=== PATIENT | male | born 1940 | race Caucasian/White ===

== ENCOUNTER → 2016-05-09 | Outpatient (REF) | payer MEDICARE | LOC: M LAB REF 16:02 | PROVIDERS: ATTEND Family Medicine | DX: R06.02 Shortness of breath (principal) ==

== ENCOUNTER → 2016-05-09 | Outpatient (CLI) | payer MEDICARE ==
[~2016-05-09] MED LIST: ISOVUE-370 76% 100ML VIAL (Q9967) As Ordered ONE
--- NOTE | 2016-05-09 17:27 | REP ---
Chest CT, pulmonary CT angiography: There are no emboli in the pulmonary trunk or in the central right or left pulmonary arteries. There are no emboli in the pulmonary artery lobe or segment branches. The lung turner are clear. There are no masses, infiltrates or effusions. There are numerous small bulla throughout the lung turner bilaterally compatible with bullous emphysema. There is no mediastinal or hilar adenopathy. There is no axillary adenopathy. The thoracic aorta is unremarkable. The cardiac size is normal. There is no pericardial effusion. In the upper abdomen there is a 2.8 cm left adrenal nodule, unchanged from the prior study. The right adrenals are all. There are bilateral renal upper pole cysts, each approximately centimeter in diameter. The visualized upper abdominal contents are otherwise unremarkable. Impression: There are no pulmonary emboli. There are no acute infiltrates or effusions. No masses or adenopathy. There are numerous small bulla throughout the lung turner bilaterally compatible with bullous emphysema. There is a stable left adrenal nodule, unchanged from 01/05/2010. Signed by Eric Baltazar MD 05/09/2016 05:18 P
== END ==
LOC: M RAD 15:37
PROVIDERS: ATTEND Family Medicine
DX: R06.02 Shortness of breath (principal); N28.1 Cyst of kidney, acquired
CPT/HCPCS: 71275; 85379; Q9967

== ENCOUNTER → 2021-08-26 | Outpatient (CLI) | payer MEDICARE | LOC: M CARPUL 08:56 | PROVIDERS: ATTEND Internal Medicine Pulmonary Disease | DX: J44.9 Chronic obstructive pulmonary disease, unspecified (principal) ==

== ENCOUNTER 2022-12-07 07:05 | Day surgery (SDC) | payer MEDICARE ==
[~2022-12-07] VITALS: Ht 180.3 cm; Wt 110.8 kg
[~2022-12-07 07:05] MED LIST changes: +ALBUTEROL SULFATE 2.5MG/0.5ML INH NEB SOLN INH ONE; +FLUT1BLS8 IH; -ISOVUE-370 76% 100ML VIAL (Q9967) As Ordered ONE; +LIDOCAINE PRES-FREE 2% 10ML AMP INH ONE; +NORV5TAB PO; +VENTAER INH
[2022-12-07] MEDS ORDERED: LR 1,000 ML IV SCH ×2 (07:40→09:50)
[2022-12-07] MEDS ORDERED: LIDOCAINE 2% 100MG/5ML SDV (FOR ANES.) As Ordered ONE (07:53)
[2022-12-07] MEDS ORDERED: ONDANSETRON 4MG 2ML VIAL As Ordered ONE (07:53)
[2022-12-07] MEDS ORDERED: propofoL 200 MG/20 ML VIAL As Ordered ONE (07:53)
[2022-12-07] MEDS ORDERED: SUGAMMADEX SODIUM 500 MG/5 ML VIAL (BRIDION) As Ordered ONE (07:53)
[2022-12-07] MEDS ORDERED: ROCURONIUM BROMIDE 50MG/5ML VIAL As Ordered ONE (07:53)
[2022-12-07] MEDS ORDERED: fentaNYL 100 MCG/2 ML INJECTION As Ordered ONE (07:57)
[2022-12-07] MEDS ORDERED: EPINEPHrine 1MG/10ML SYRINGE 1.5IN As Ordered ONE (08:57)
[2022-12-07] MEDS ORDERED: THROMBIN 5,000 UNITS VIAL As Ordered ONE (08:57)
[2022-12-07] MEDS ORDERED: CETACAINE SPRAY 5GM As Ordered ONE (08:57)
[2022-12-07] MEDS ORDERED: PHENYLephrine 500MCG 5ML (100MCG/ML) SYRINGE As Ordered ONE (09:35)
[2022-12-07] MEDS ORDERED: HYDROMORPHONE HCL 0.5 MG/ 0.5 ML SYRINGE IV PRN (09:50)
[2022-12-07] MEDS ORDERED: oxyCODONE 5MG TAB PO PRN (09:50)
[2022-12-07] MEDS ORDERED: fentaNYL 100 MCG/2 ML INJECTION IV PRN (09:50)
[2022-12-07] MEDS ORDERED: ONDANSETRON 4MG 2ML VIAL IV PRN (09:50)
[2022-12-07] MEDS ORDERED: ACETAMINOPHEN 1000MG 100ML IV BAG As Ordered ONE (11:07)
[2022-12-07 11:35] VITALS: BP 135/85; TEMP 98.2; O2SAT 93
== END 2022-12-07 11:37 | disposition home or self-care (01) ==
LOC: M SDC 07:05
PROVIDERS: ATTEND Internal Medicine Pulmonary Disease
DX: R91.8 Other nonspecific abnormal finding of lung field (principal); I10 Essential (primary) hypertension; J44.9 Chronic obstructive pulmonary disease, unspecified; Z85.118 Personal history of other malignant neoplasm of bronchus and lung; Z92.3 Personal history of irradiation; Z79.51 Long term (current) use of inhaled steroids; Z87.891 Personal history of nicotine dependence
CPT/HCPCS: 31622; 31652; 88104; J0131; J0171; J1100; J2371; J2405; J3010

== ENCOUNTER → 2023-08-28 | Outpatient (CLI) | payer MEDICARE ==
[~2023-08-28] MED LIST changes: -ALBUTEROL SULFATE 2.5MG/0.5ML INH NEB SOLN INH ONE; -LIDOCAINE PRES-FREE 2% 10ML AMP INH ONE
[2023-08-28 06:32] LABS: BASO # 0.1 10^3/uL (0.0-0.2); BASO % 0.8 % (0.0-1.0); EOS # 0.1 10^3/uL (0.0-0.5); HEMATOCRIT 48.8 % (42.0-52.0); HEMOGLOBIN 16.3 g/dl (13.5-17.5); LYMPH # 0.8 10^3/uL (1.5-5.0); LYMPH % 12.8 % (24.0-44.0); MEAN CORPUSCULAR HEMOGLOBIN 31.7 pg (27.0-33.0); MEAN CORPUSCULAR HGB CONC 33.4 g/dl (32.0-36.5); MEAN CORPUSCULAR VOLUME 94.8 fl (80.0-96.0); MONO # 0.8 10^3/uL (0.0-0.8); MONO % 13.3 % (2.0-8.0); NEUTROPHILS # 4.2 10^3/uL (1.5-8.5); NEUTROPHILS % 70.8 % (36.0-66.0); PLATELET COUNT, AUTOMATED 162 10^3/uL (150-450); RED BLOOD COUNT 5.15 10^6/uL (4.30-6.10); WHITE BLOOD COUNT 5.9 10^3/uL (4.0-10.0)
[2023-08-28 07:02] LABS: ALBUMIN 3.8 G/DL (3.2-5.2); BILIRUBIN,TOTAL 1.3 MG/DL (0.3-1.2); CALCIUM LEVEL 9.7 MG/DL (8.3-10.6); CREATININE FOR GFR 1.45 MG/DL (0.70-1.30); GLOMERULAR FILTRATION RATE 49.7 (>35); POTASSIUM SERUM 4.6 MMOL/L (3.5-5.1); THYROID STIMULATING HORMONE 0.628 uIU/ML (0.55-4.78); TOTAL PROTEIN 6.4 G/DL (5.7-8.2)
== END ==
LOC: M LAB 08-22 08:56
PROVIDERS: ATTEND Nurse Practitioner Family
DX: C34.81 Malignant neoplasm of overlapping sites of right bronchus and lung (principal); R91.1 Solitary pulmonary nodule; R10.32 Left lower quadrant pain; R19.5 Other fecal abnormalities; Z79.899 Other long term (current) drug therapy

== ENCOUNTER → 2023-09-18 | Outpatient (CLI) | payer MEDICARE ==
[2023-09-18 06:39] LABS: BASO # 0.1 10^3/uL (0.0-0.2); BASO % 0.6 % (0.0-1.0); EOS # 0.1 10^3/uL (0.0-0.5); EOS % 0.6 % (0.0-3.0); HEMATOCRIT 47.7 % (42.0-52.0); HEMOGLOBIN 15.9 g/dl (13.5-17.5); LYMPH # 0.9 10^3/uL (1.5-5.0); MEAN CORPUSCULAR HEMOGLOBIN 31.5 pg (27.0-33.0); MEAN CORPUSCULAR HGB CONC 33.3 g/dl (32.0-36.5); MEAN CORPUSCULAR VOLUME 94.5 fl (80.0-96.0); MONO # 0.9 10^3/uL (0.0-0.8); NEUTROPHILS % 76.2 % (36.0-66.0); PLATELET COUNT, AUTOMATED 179 10^3/uL (150-450); RED BLOOD COUNT 5.05 10^6/uL (4.30-6.10); WHITE BLOOD COUNT 7.9 10^3/uL (4.0-10.0)
[2023-09-18 07:02] LABS: ALBUMIN 3.7 G/DL (3.2-5.2); ALKALINE PHOSPHATASE 68 U/L (46-116); ALT/SGPT 15 U/L (7.0-40); AST/SGOT 12 U/L (<34); BILIRUBIN,TOTAL 1.2 MG/DL (0.3-1.2); BLOOD UREA NITROGEN 27 MG/DL (9-23); CALCIUM LEVEL 9.6 MG/DL (8.3-10.6); CARBON DIOXIDE LEVEL 30 MMOL/L (20-31); CHLORIDE LEVEL 108 MMOL/L (98-107); CREATININE FOR GFR 1.17 MG/DL (0.70-1.30); GLOMERULAR FILTRATION RATE > 60.0 (>35); GLUCOSE, FASTING 93 MG/DL (74-106); POTASSIUM SERUM 4.9 MMOL/L (3.5-5.1); SODIUM LEVEL 141 MMOL/L (136-145); TOTAL PROTEIN 6.4 G/DL (5.7-8.2)
[2023-09-18 07:04] LABS: THYROID STIMULATING HORMONE 0.406 uIU/ML (0.55-4.78)
== END ==
LOC: M LAB 06:03
PROVIDERS: ATTEND Nurse Practitioner Family
DX: R91.1 Solitary pulmonary nodule (principal); C34.81 Malignant neoplasm of overlapping sites of right bronchus and lung; R10.32 Left lower quadrant pain; R19.5 Other fecal abnormalities; Z79.899 Other long term (current) drug therapy

== ENCOUNTER → 2023-10-10 | Outpatient (CLI) | payer MEDICARE ==
[2023-10-10 06:36] LABS: BASO % 0.5 % (0.0-1.0); EOS # 0.2 10^3/uL (0.0-0.5); EOS % 2.9 % (0.0-3.0); HEMATOCRIT 47.1 % (42.0-52.0); HEMOGLOBIN 15.5 g/dl (13.5-17.5); LYMPH # 0.8 10^3/uL (1.5-5.0); MEAN CORPUSCULAR HEMOGLOBIN 31.8 pg (27.0-33.0); MEAN CORPUSCULAR HGB CONC 32.9 g/dl (32.0-36.5); MEAN CORPUSCULAR VOLUME 96.5 fl (80.0-96.0); MONO # 0.8 10^3/uL (0.0-0.8); MONO % 13.9 % (2.0-8.0); NEUTROPHILS % 69.4 % (36.0-66.0); PLATELET COUNT, AUTOMATED 164 10^3/uL (150-450); RED BLOOD COUNT 4.88 10^6/uL (4.30-6.10); WHITE BLOOD COUNT 5.8 10^3/uL (4.0-10.0)
[2023-10-10 07:00] LABS: ALBUMIN 3.5 G/DL (3.2-5.2); ALKALINE PHOSPHATASE 67 U/L (46-116); ALT/SGPT 18 U/L (7.0-40); AST/SGOT 17 U/L (<34); BILIRUBIN,TOTAL 0.9 MG/DL (0.3-1.2); BLOOD UREA NITROGEN 26 MG/DL (9-23); CARBON DIOXIDE LEVEL 28 MMOL/L (20-31); CHLORIDE LEVEL 108 MMOL/L (98-107); CREATININE FOR GFR 1.18 MG/DL (0.70-1.30); GLOMERULAR FILTRATION RATE > 60.0 (>35); GLUCOSE, FASTING 94 MG/DL (74-106); POTASSIUM SERUM 4.5 MMOL/L (3.5-5.1); SODIUM LEVEL 139 MMOL/L (136-145); TOTAL PROTEIN 6.2 G/DL (5.7-8.2)
[2023-10-10 07:02] LABS: THYROID STIMULATING HORMONE 0.516 uIU/ML (0.55-4.78)
== END ==
LOC: M LAB 06:02
PROVIDERS: ATTEND Nurse Practitioner Family
DX: R91.1 Solitary pulmonary nodule (principal); C34.81 Malignant neoplasm of overlapping sites of right bronchus and lung; R10.32 Left lower quadrant pain; R19.5 Other fecal abnormalities; Z79.899 Other long term (current) drug therapy

== ENCOUNTER → 2023-10-16 | Outpatient (CLI) | payer MEDICARE | LOC: M RAD 11:44 | PROVIDERS: ATTEND Internal Medicine Hematology & Oncology | DX: C34.81 Malignant neoplasm of overlapping sites of right bronchus and lung (principal); R91.1 Solitary pulmonary nodule; R13.10 Dysphagia, unspecified; R10.32 Left lower quadrant pain; R19.5 Other fecal abnormalities ==

== ENCOUNTER → 2023-10-27 | Outpatient (CLI) | payer MEDICARE ==
[~2023-10-27] MED LIST changes: +ISOVUE-370 76% 100ML VIAL ONE
== END ==
LOC: M PLAIMG 11:34
PROVIDERS: ATTEND Internal Medicine Hematology & Oncology
DX: C34.81 Malignant neoplasm of overlapping sites of right bronchus and lung (principal); R13.10 Dysphagia, unspecified; R22.42 Localized swelling, mass and lump, left lower limb; R10.32 Left lower quadrant pain; R19.5 Other fecal abnormalities; E04.2 Nontoxic multinodular goiter; J43.2 Centrilobular emphysema; M47.812 Spondylosis without myelopathy or radiculopathy, cervical region
CPT/HCPCS: 70491; Q9967

== ENCOUNTER → 2023-10-30 | Outpatient (CLI) | payer MEDICARE ==
[~2023-10-30] MED LIST changes: -ISOVUE-370 76% 100ML VIAL ONE
[2023-10-30 08:04] LABS: BASO % 0.4 % (0.0-1.0); EOS # 0.1 10^3/uL (0.0-0.5); EOS % 1.5 % (0.0-3.0); HEMOGLOBIN 15.6 g/dl (13.5-17.5); LYMPH # 0.7 10^3/uL (1.5-5.0); LYMPH % 10.5 % (24.0-44.0); MEAN CORPUSCULAR HEMOGLOBIN 31.6 pg (27.0-33.0); MEAN CORPUSCULAR HGB CONC 33.2 g/dl (32.0-36.5); MEAN CORPUSCULAR VOLUME 95.1 fl (80.0-96.0); MONO % 14.9 % (2.0-8.0); NEUTROPHILS % 72.4 % (36.0-66.0); PLATELET COUNT, AUTOMATED 159 10^3/uL (150-450); RED BLOOD COUNT 4.94 10^6/uL (4.30-6.10); WHITE BLOOD COUNT 6.9 10^3/uL (4.0-10.0)
[2023-10-30 08:37] LABS: ALBUMIN 3.6 G/DL (3.2-5.2); ALKALINE PHOSPHATASE 73 U/L (46-116); ALT/SGPT 15 U/L (7.0-40); AST/SGOT 14 U/L (<34); BILIRUBIN,TOTAL 1.1 MG/DL (0.3-1.2); BLOOD UREA NITROGEN 24 MG/DL (9-23); CALCIUM LEVEL 9.3 MG/DL (8.3-10.6); CARBON DIOXIDE LEVEL 29 MMOL/L (20-31); CHLORIDE LEVEL 110 MMOL/L (98-107); CREATININE FOR GFR 1.18 MG/DL (0.70-1.30); GLOMERULAR FILTRATION RATE > 60.0 (>35); GLUCOSE, FASTING 106 MG/DL (74-106); MAGNESIUM LEVEL 1.9 MG/DL (1.8-2.4); POTASSIUM SERUM 4.6 MMOL/L (3.5-5.1); SODIUM LEVEL 142 MMOL/L (136-145); TOTAL PROTEIN 6.3 G/DL (5.7-8.2)
== END ==
LOC: M LAB 06:17
PROVIDERS: ATTEND Nurse Practitioner Family
DX: R91.1 Solitary pulmonary nodule (principal); C34.81 Malignant neoplasm of overlapping sites of right bronchus and lung; R10.32 Left lower quadrant pain; R19.5 Other fecal abnormalities; Z79.899 Other long term (current) drug therapy

== ENCOUNTER → 2023-11-14 | Outpatient (CLI) | payer MEDICARE | LOC: M PLAIMG 08:54 | PROVIDERS: ATTEND Student in an Organized Health Care Education/Training Program | DX: C34.81 Malignant neoplasm of overlapping sites of right bronchus and lung (principal); R91.1 Solitary pulmonary nodule; R10.32 Left lower quadrant pain; R19.5 Other fecal abnormalities ==

== ENCOUNTER → 2023-11-14 | Outpatient (CLI) | payer MEDICARE | LOC: M PLAIMG 08:58 | PROVIDERS: ATTEND Internal Medicine Hematology & Oncology | DX: C34.81 Malignant neoplasm of overlapping sites of right bronchus and lung (principal); R91.1 Solitary pulmonary nodule; R11.0 Nausea; R13.10 Dysphagia, unspecified; R22.42 Localized swelling, mass and lump, left lower limb; R10.32 Left lower quadrant pain; R19.5 Other fecal abnormalities ==

== ENCOUNTER → 2023-11-21 | Outpatient (CLI) | payer MEDICARE ==
[2023-11-21 06:53] LABS: BASO # 0.1 10^3/uL (0.0-0.2); BASO % 0.8 % (0.0-1.0); EOS # 0.1 10^3/uL (0.0-0.5); HEMATOCRIT 47.1 % (42.0-52.0); HEMOGLOBIN 15.6 g/dl (13.5-17.5); LYMPH # 0.9 10^3/uL (1.5-5.0); LYMPH % 12.2 % (24.0-44.0); MEAN CORPUSCULAR HEMOGLOBIN 31.2 pg (27.0-33.0); MEAN CORPUSCULAR HGB CONC 33.1 g/dl (32.0-36.5); MEAN CORPUSCULAR VOLUME 94.2 fl (80.0-96.0); MONO # 0.9 10^3/uL (0.0-0.8); MONO % 12.7 % (2.0-8.0); NEUTROPHILS # 5.1 10^3/uL (1.5-8.5); NEUTROPHILS % 71.9 % (36.0-66.0); PLATELET COUNT, AUTOMATED 186 10^3/uL (150-450); WHITE BLOOD COUNT 7.1 10^3/uL (4.0-10.0)
[2023-11-21 07:27] LABS: ALBUMIN 3.6 G/DL (3.2-5.2); ALKALINE PHOSPHATASE 78 U/L (46-116); ALT/SGPT 14 U/L (7.0-40); AST/SGOT 12 U/L (<34); BILIRUBIN,TOTAL 1.1 MG/DL (0.3-1.2); BLOOD UREA NITROGEN 24 MG/DL (9-23); CALCIUM LEVEL 9.8 MG/DL (8.3-10.6); CARBON DIOXIDE LEVEL 29 MMOL/L (20-31); CHLORIDE LEVEL 107 MMOL/L (98-107); GLOMERULAR FILTRATION RATE > 60.0 (>35); GLUCOSE, FASTING 89 MG/DL (74-106); POTASSIUM SERUM 4.6 MMOL/L (3.5-5.1); SODIUM LEVEL 142 MMOL/L (136-145); TOTAL PROTEIN 6.5 G/DL (5.7-8.2)
[2023-11-21 07:28] LABS: FREE T4 1.29 NG/DL (0.89-1.76); THYROID STIMULATING HORMONE 1.539 uIU/ML (0.55-4.78)
== END ==
LOC: M LAB 06:03
PROVIDERS: ATTEND Internal Medicine Hematology & Oncology
DX: Z51.81 Encounter for therapeutic drug level monitoring (principal); Z79.899 Other long term (current) drug therapy

== ENCOUNTER → 2023-12-11 | Outpatient (CLI) | payer MEDICARE ==
[2023-12-11 06:46] LABS: BASO # 0.1 10^3/uL (0.0-0.2); BASO % 0.7 % (0.0-1.0); EOS # 0.3 10^3/uL (0.0-0.5); EOS % 4.1 % (0.0-3.0); HEMATOCRIT 46.7 % (42.0-52.0); HEMOGLOBIN 15.8 g/dl (13.5-17.5); LYMPH # 0.8 10^3/uL (1.5-5.0); MEAN CORPUSCULAR HEMOGLOBIN 31.7 pg (27.0-33.0); MEAN CORPUSCULAR HGB CONC 33.8 g/dl (32.0-36.5); MEAN CORPUSCULAR VOLUME 93.8 fl (80.0-96.0); MONO % 13.8 % (2.0-8.0); NEUTROPHILS # 5.2 10^3/uL (1.5-8.5); NEUTROPHILS % 70.1 % (36.0-66.0); PLATELET COUNT, AUTOMATED 204 10^3/uL (150-450); RED BLOOD COUNT 4.98 10^6/uL (4.30-6.10); WHITE BLOOD COUNT 7.5 10^3/uL (4.0-10.0)
[2023-12-11 07:19] LABS: ALBUMIN 3.5 G/DL (3.2-5.2); ALKALINE PHOSPHATASE 80 U/L (40-129); ALT/SGPT 15 U/L (7.0-40); AST/SGOT 12 U/L (<34); BILIRUBIN,TOTAL 1.3 MG/DL (0.3-1.2); BLOOD UREA NITROGEN 20 MG/DL (9-23); CALCIUM LEVEL 9.8 MG/DL (8.3-10.6); CARBON DIOXIDE LEVEL 25 MMOL/L (20-31); CHLORIDE LEVEL 107 MMOL/L (98-107); CREATININE FOR GFR 1.08 MG/DL (0.70-1.30); GLOMERULAR FILTRATION RATE > 60.0 (>35); GLUCOSE, FASTING 114 MG/DL (74-106); MAGNESIUM LEVEL 2.1 MG/DL (1.8-2.4); POTASSIUM SERUM 4.4 MMOL/L (3.5-5.1); SODIUM LEVEL 141 MMOL/L (136-145); TOTAL PROTEIN 6.5 G/DL (5.7-8.2)
[2023-12-11 07:21] LABS: FREE T4 1.37 NG/DL (0.89-1.76); THYROID STIMULATING HORMONE 0.627 uIU/ML (0.55-4.78)
== END ==
LOC: M LAB 06:06
PROVIDERS: ATTEND Internal Medicine Hematology & Oncology
DX: R22.42 Localized swelling, mass and lump, left lower limb (principal); Z79.899 Other long term (current) drug therapy; C34.81 Malignant neoplasm of overlapping sites of right bronchus and lung; R10.32 Left lower quadrant pain; R19.5 Other fecal abnormalities; R13.10 Dysphagia, unspecified

== ENCOUNTER → 2024-01-01 | Outpatient (CLI) | payer MEDICARE ==
[2024-01-01 08:05] LABS: BASO # 0.1 10^3/uL (0.0-0.2); BASO % 0.6 % (0.0-1.0); EOS # 0.2 10^3/uL (0.0-0.5); HEMATOCRIT 47.2 % (42.0-52.0); HEMOGLOBIN 15.7 g/dl (13.5-17.5); LYMPH % 12.4 % (24.0-44.0); MEAN CORPUSCULAR HEMOGLOBIN 31.4 pg (27.0-33.0); MEAN CORPUSCULAR HGB CONC 33.3 g/dl (32.0-36.5); MEAN CORPUSCULAR VOLUME 94.4 fl (80.0-96.0); MONO # 0.9 10^3/uL (0.0-0.8); MONO % 11.2 % (2.0-8.0); NEUTROPHILS # 5.6 10^3/uL (1.5-8.5); NEUTROPHILS % 72.5 % (36.0-66.0); PLATELET COUNT, AUTOMATED 188 10^3/uL (150-450); WHITE BLOOD COUNT 7.8 10^3/uL (4.0-10.0)
[2024-01-01 08:40] LABS: ALBUMIN 3.6 G/DL (3.2-5.2); ALKALINE PHOSPHATASE 87 U/L (40-129); ALT/SGPT 13 U/L (7.0-40); AST/SGOT 10 U/L (<34); BILIRUBIN,TOTAL 0.7 MG/DL (0.3-1.2); BLOOD UREA NITROGEN 18 MG/DL (9-23); CALCIUM LEVEL 9.7 MG/DL (8.3-10.6); CARBON DIOXIDE LEVEL 27 MMOL/L (20-31); CHLORIDE LEVEL 108 MMOL/L (98-107); CREATININE FOR GFR 1.11 MG/DL (0.70-1.30); GLOMERULAR FILTRATION RATE > 60.0 (>35); GLUCOSE, FASTING 145 MG/DL (74-106); POTASSIUM SERUM 5.1 MMOL/L (3.5-5.1); SODIUM LEVEL 141 MMOL/L (136-145); THYROID STIMULATING HORMONE 0.418 uIU/ML (0.55-4.78); TOTAL PROTEIN 6.9 G/DL (5.7-8.2)
[2024-01-01 08:41] LABS: FREE T4 1.21 NG/DL (0.89-1.76)
== END ==
LOC: M LAB 06:07
PROVIDERS: ATTEND Internal Medicine Hematology & Oncology
DX: R91.1 Solitary pulmonary nodule (principal); Z79.899 Other long term (current) drug therapy; R19.5 Other fecal abnormalities; R13.10 Dysphagia, unspecified; R22.42 Localized swelling, mass and lump, left lower limb; C34.81 Malignant neoplasm of overlapping sites of right bronchus and lung

== ENCOUNTER 2024-01-22 12:20 | Day surgery (SDC) | payer MEDICARE ==
[~2024-01-22] VITALS: Ht 175.3 cm; Wt 106.6 kg
[~2024-01-22 12:20] MED LIST changes: +NS 250 ML IV ONE
[2024-01-22] MEDS ORDERED: propofoL 200 MG/20 ML VIAL As Ordered ONE (14:02)
[2024-01-22] MEDS ORDERED: LIDOCAINE 2% 100MG/5ML SDV (FOR ANES.) As Ordered ONE (14:02)
[2024-01-22 14:17] VITALS: TEMP 98.1
[2024-01-22 14:40] VITALS: BP 117/81; O2SAT 96
== END 2024-01-22 14:48 | disposition home or self-care (01) ==
LOC: M OPP 12:20
PROVIDERS: ATTEND Internal Medicine Gastroenterology
DX: K21.00 Gastro-esophageal reflux disease with esophagitis, without bleeding (principal); K44.9 Diaphragmatic hernia without obstruction or gangrene; I10 Essential (primary) hypertension; E78.5 Hyperlipidemia, unspecified; R60.0 Localized edema; M19.90 Unspecified osteoarthritis, unspecified site; F32.A Depression, unspecified; J45.909 Unspecified asthma, uncomplicated; J44.9 Chronic obstructive pulmonary disease, unspecified; C34.81 Malignant neoplasm of overlapping sites of right bronchus and lung; R91.1 Solitary pulmonary nodule; R10.32 Left lower quadrant pain; R19.5 Other fecal abnormalities; R13.10 Dysphagia, unspecified; E05.00 Thyrotoxicosis with diffuse goiter without thyrotoxic crisis or storm; Z92.21 Personal history of antineoplastic chemotherapy; Z92.3 Personal history of irradiation; Z87.891 Personal history of nicotine dependence; Z79.51 Long term (current) use of inhaled steroids; Z79.899 Other long term (current) drug therapy

== ENCOUNTER → 2024-01-22 | Outpatient (CLI) | payer MEDICARE ==
[~2024-01-22] MED LIST changes: +ALBU8.5H INH; +BRIM0.2S13 OU; +MIRT1TAB PO; +PANT40TA29 PO; +PEMB100V2 IV; +XALA0.007 OU
[2024-01-22 07:21] LABS: FREE T4 1.08 NG/DL (0.89-1.76); THYROID STIMULATING HORMONE 0.688 uIU/ML (0.55-4.78)
== END ==
LOC: M LAB 06:06
PROVIDERS: ATTEND Nurse Practitioner Family
DX: E05.00 Thyrotoxicosis with diffuse goiter without thyrotoxic crisis or storm (principal)

== ENCOUNTER → 2024-01-22 | Outpatient (CLI) | payer MEDICARE ==
[2024-01-22 06:41] LABS: BASO # 0.1 10^3/uL (0.0-0.2); BASO % 0.6 % (0.0-1.0); EOS # 0.3 10^3/uL (0.0-0.5); EOS % 3.7 % (0.0-3.0); HEMOGLOBIN 15.5 g/dl (13.5-17.5); LYMPH # 0.9 10^3/uL (1.5-5.0); LYMPH % 10.6 % (24.0-44.0); MEAN CORPUSCULAR HEMOGLOBIN 31.5 pg (27.0-33.0); MEAN CORPUSCULAR HGB CONC 33.7 g/dl (32.0-36.5); MEAN CORPUSCULAR VOLUME 93.5 fl (80.0-96.0); MONO # 0.9 10^3/uL (0.0-0.8); MONO % 11.4 % (2.0-8.0); NEUTROPHILS # 5.9 10^3/uL (1.5-8.5); NEUTROPHILS % 73.5 % (36.0-66.0); PLATELET COUNT, AUTOMATED 180 10^3/uL (150-450); RED BLOOD COUNT 4.92 10^6/uL (4.30-6.10)
[2024-01-22 07:14] LABS: ALBUMIN 3.4 G/DL (3.2-5.2); ALKALINE PHOSPHATASE 94 U/L (40-129); ALT/SGPT 16 U/L (7.0-40); AST/SGOT 13 U/L (<34); BILIRUBIN,TOTAL 1.3 MG/DL (0.3-1.2); BLOOD UREA NITROGEN 14 MG/DL (9-23); CALCIUM LEVEL 9.4 MG/DL (8.3-10.6); CARBON DIOXIDE LEVEL 26 MMOL/L (20-31); CHLORIDE LEVEL 108 MMOL/L (98-107); CREATININE FOR GFR 1.16 MG/DL (0.70-1.30); GLOMERULAR FILTRATION RATE > 60.0 (>35); GLUCOSE, FASTING 133 MG/DL (74-106); MAGNESIUM LEVEL 1.9 MG/DL (1.8-2.4); POTASSIUM SERUM 4.1 MMOL/L (3.5-5.1); SODIUM LEVEL 141 MMOL/L (136-145); TOTAL PROTEIN 6.3 G/DL (5.7-8.2)
[2024-01-22 07:21] LABS: FREE T4 1.14 NG/DL (0.89-1.76); THYROID STIMULATING HORMONE 0.686 uIU/ML (0.55-4.78)
== END ==
LOC: M LAB 06:04
PROVIDERS: ATTEND Internal Medicine Hematology & Oncology
DX: C34.81 Malignant neoplasm of overlapping sites of right bronchus and lung (principal); R91.1 Solitary pulmonary nodule; R10.32 Left lower quadrant pain; R19.5 Other fecal abnormalities; R13.10 Dysphagia, unspecified; R22.42 Localized swelling, mass and lump, left lower limb; Z79.899 Other long term (current) drug therapy

== ENCOUNTER → 2024-01-26 | Outpatient (CLI) | payer MEDICARE ==
[~2024-01-26] MED LIST changes: +ALBU2.5V10 NEB; +ISOVUE-370 76% 100ML VIAL As Ordered ONE; +MOXI400T11 PO; +NEBU1EAC74 MC; +NEBU1EAC78 MC; -NS 250 ML IV ONE; +PRED20TA PO
== END ==
LOC: M RAD 09:46
PROVIDERS: ATTEND Student in an Organized Health Care Education/Training Program
DX: C34.81 Malignant neoplasm of overlapping sites of right bronchus and lung (principal); R91.1 Solitary pulmonary nodule; R11.0 Nausea; R13.10 Dysphagia, unspecified; R22.42 Localized swelling, mass and lump, left lower limb; R10.32 Left lower quadrant pain; R19.5 Other fecal abnormalities; J43.2 Centrilobular emphysema; R91.8 Other nonspecific abnormal finding of lung field; I77.810 Thoracic aortic ectasia
CPT/HCPCS: 71260; Q9967

== ENCOUNTER 2024-01-27 09:56 | Emergency (ER) | payer MEDICARE ==
[~2024-01-27] VITALS: Ht 177.8 cm; Wt 102.7 kg
[~2024-01-27 09:56] MED LIST changes: -ALBU2.5V10 NEB; -ISOVUE-370 76% 100ML VIAL As Ordered ONE; -MOXI400T11 PO; -NEBU1EAC74 MC; -NEBU1EAC78 MC; -PRED20TA PO
[2024-01-27] MEDS ORDERED: ALBUTEROL SULFATE 2.5MG/0.5ML INH NEB SOLN As Ordered ONE (10:36)
[2024-01-27] MEDS ORDERED: IPRATROPIUM 0.5MG/ALBUTEROL 2.5MG INH SOL UD 3ML (DUONEB) As Ordered ONE (10:37)
[2024-01-27] MEDS: ALBUTEROL SULFATE 2.5MG/0.5ML INH NEB SOLN INH ONE (10:39)
[2024-01-27] MEDS: IPRATROPIUM 0.5MG/ALBUTEROL 2.5MG INH SOL UD 3ML (DUONEB) NEB ONE (10:40)
[2024-01-27 11:08] LABS: VENOUS BASE EXCESS -1.7 (-2.0-2.0); VENOUS O2 SATURATION 61.2 % (60.0-80.0); VENOUS PARTIAL PRESSURE O2 30.4 mmHg (30.0-50.0); VENOUS PH 7.317 UNITS (7.330-7.430); VENOUS STANDARD HCO3 22.1 MMOL/L; VENOUS TOTAL CO2 26.5 MMOL/L (24.0-28.0)
[2024-01-27] MEDS: NS 500 ML IV ONE (11:09)
[2024-01-27] MEDS: methylPREDNISolone 125MG 2ML VIAL IV ONE (11:10)
[2024-01-27 11:18] LABS: BASO # 0.1 10^3/uL (0.0-0.2); BASO % 0.4 % (0.0-1.0); EOS # 0.1 10^3/uL (0.0-0.5); EOS % 0.7 % (0.0-3.0); HEMATOCRIT 42.6 % (42.0-52.0); HEMOGLOBIN 14.3 g/dl (13.5-17.5); LYMPH # 1.2 10^3/uL (1.5-5.0); MEAN CORPUSCULAR HEMOGLOBIN 31.3 pg (27.0-33.0); MEAN CORPUSCULAR HGB CONC 33.6 g/dl (32.0-36.5); MEAN CORPUSCULAR VOLUME 93.2 fl (80.0-96.0); MONO # 1.9 10^3/uL (0.0-0.8); MONO % 15.7 % (2.0-8.0); NEUTROPHILS % 72.9 % (36.0-66.0); PLATELET COUNT, AUTOMATED 185 10^3/uL (150-450); RED BLOOD COUNT 4.57 10^6/uL (4.30-6.10); WHITE BLOOD COUNT 12.4 10^3/uL (4.0-10.0)
[2024-01-27 11:43] LABS: CK-MB VALUE MASS < 1.0 NG/ML (<3.6)
[2024-01-27 11:45] LABS: ALBUMIN 3.1 G/DL (3.2-5.2); ALKALINE PHOSPHATASE 82 U/L (40-129); ALT/SGPT 14 U/L (7.0-40); AST/SGOT 10 U/L (<34); BLOOD UREA NITROGEN 11 MG/DL (9-23); CALCIUM LEVEL 8.8 MG/DL (8.3-10.6); CARBON DIOXIDE LEVEL 28 MMOL/L (20-31); CHLORIDE LEVEL 106 MMOL/L (98-107); CPK CREATINE PHOSPHOKINASE 88 U/L (46-171); CREATININE FOR GFR 1.16 MG/DL (0.70-1.30); GLOMERULAR FILTRATION RATE > 60.0 (>35); GLUCOSE, FASTING 125 MG/DL (74-106); MB/CK RELATIVE INDEX 1.13 (< OR =4); POTASSIUM SERUM 3.7 MMOL/L (3.5-5.1); SODIUM LEVEL 141 MMOL/L (136-145); TOTAL PROTEIN 6.2 G/DL (5.7-8.2)
[2024-01-27 11:47] LABS: THYROXINE (T4) 5.2 UG/DL (4.5-10.9)
[2024-01-27 12:09] LABS: CK-MB VALUE MASS < 1.0 NG/ML (<3.6)
[2024-01-27 12:17] LABS: CPK CREATINE PHOSPHOKINASE 87 U/L (46-171); MB/CK RELATIVE INDEX 1.14 (< OR =4)
[2024-01-27] MEDS ORDERED: PRED20TA PO (13:24)
[2024-01-27] MEDS ORDERED: MOXI400T11 PO (13:25)
[2024-01-27] MEDS ORDERED: ALBU2.5V10 NEB (13:25)
[2024-01-27] MEDS ORDERED: NEBU1EAC78 MC (13:26)
[2024-01-27] MEDS ORDERED: NEBU1EAC74 MC (13:26)
[2024-01-27 13:59] VITALS: BP 105/65; TEMP 100
[2024-01-27] MEDS: MOXIFLOXACIN 400 MG TAB PO ONE (14:00)
[2024-01-27] MEDS: ACETAMINOPHEN 325 MG TAB PO ONE (14:01)
[2024-01-27 14:13] VITALS: O2SAT 94
== END 2024-01-27 14:17 | disposition home or self-care (01) ==
LOC: M ED 09:56
DX: J18.9 Pneumonia, unspecified organism (principal); J44.1 Chronic obstructive pulmonary disease with (acute) exacerbation; R00.0 Tachycardia, unspecified; I44.4 Left anterior fascicular block; I10 Essential (primary) hypertension; N40.0 Benign prostatic hyperplasia without lower urinary tract symptoms; F17.200 Nicotine dependence, unspecified, uncomplicated; Z79.52 Long term (current) use of systemic steroids; Z79.899 Other long term (current) drug therapy; Z79.2 Long term (current) use of antibiotics
CPT/HCPCS: 71045; 80047; 80048; 80076; 82550; 82553; 82803; 83605; 83880; 84436; 84443; 84484; 85025; 87040; 87486; 87581; 87633; 87798; 93005; 93041; 94640; 94760; 96361; 96374; 99285; J2919

== ENCOUNTER → 2024-02-19 | Outpatient (CLI) | payer MEDICARE ==
[~2024-02-19] MED LIST changes: +ALBU2.5V10 NEB; +E-Z-GAS II EFFERVESCENT PACKET (SODIUM BICARB./CITRIC ACID/SIMETHICONE) As Ordered ONE; +E-Z-HD 98% w/w 340GM SUSP BTL As Ordered ONE; +E-Z-PAQUE 96% w/w SUSP 176GM BTL As Ordered ONE; +MOXI400T11 PO; +NEBU1EAC74 MC; +NEBU1EAC78 MC; +PRED20TA PO
== END ==
LOC: M RAD 07:33
PROVIDERS: ATTEND Internal Medicine Hematology & Oncology
DX: Z53.9 Procedure and treatment not carried out, unspecified reason (principal)

== ENCOUNTER → 2024-03-04 | Outpatient (CLI) | payer MEDICARE ==
[~2024-03-04] MED LIST changes: -E-Z-GAS II EFFERVESCENT PACKET (SODIUM BICARB./CITRIC ACID/SIMETHICONE) As Ordered ONE; -E-Z-HD 98% w/w 340GM SUSP BTL As Ordered ONE; -E-Z-PAQUE 96% w/w SUSP 176GM BTL As Ordered ONE
== END ==
LOC: M WHC 08:24
PROVIDERS: ATTEND Internal Medicine Hematology & Oncology
DX: C34.81 Malignant neoplasm of overlapping sites of right bronchus and lung (principal); N18.1 Chronic kidney disease, stage 1

== ENCOUNTER → 2024-03-04 | Outpatient (CLI) | payer MEDICARE ==
[~2024-03-04] MED LIST changes: +ISOVUE-370 76% 100ML VIAL As Ordered ONE
== END ==
LOC: M RAD 16:38
PROVIDERS: ATTEND Internal Medicine Gastroenterology
DX: C34.81 Malignant neoplasm of overlapping sites of right bronchus and lung (principal); R63.4 Abnormal weight loss; N28.1 Cyst of kidney, acquired; K40.20 Bilateral inguinal hernia, without obstruction or gangrene, not specified as recurrent; N18.1 Chronic kidney disease, stage 1
CPT/HCPCS: 74178; 76700; Q9967

== ENCOUNTER 2024-03-08 07:56 | Observation (INO) | payer MEDICARE ==
[~2024-03-08] VITALS: Ht 177.8 cm; Wt 102.9 kg
[~2024-03-08 07:56] MED LIST changes: -FLUT1BLS8 IH; +FLUT1BLS8 PO; -ISOVUE-370 76% 100ML VIAL As Ordered ONE
[2024-03-08] MEDS ORDERED: ALBUTEROL SULFATE 2.5MG/0.5ML INH NEB SOLN INH ONE (08:40)
[2024-03-08] MEDS ORDERED: IPRATROPIUM 0.5MG/ALBUTEROL 2.5MG INH SOL UD 3ML (DUONEB) NEB ONE (08:40)
[2024-03-08 09:07] LABS: VENOUS BASE EXCESS -0.9 (-2.0-2.0); VENOUS HCO3 26.2 MMOL/L (23.0-27.0); VENOUS O2 SATURATION 54.3 % (60.0-80.0); VENOUS PARTIAL PRESSURE CO2 53.5 mmHg (38.0-50.0); VENOUS PARTIAL PRESSURE O2 27.7 mmHg (30.0-50.0); VENOUS PH 7.308 UNITS (7.330-7.430); VENOUS STANDARD HCO3 22.7 MMOL/L; VENOUS TOTAL CO2 27.9 MMOL/L (24.0-28.0)
[2024-03-08] MEDS ORDERED: ISOVUE-370 76% 100ML VIAL As Ordered ONE (09:08)
[2024-03-08 09:12] LABS: BASO % 0.4 % (0.0-1.0); EOS # 0.1 10^3/uL (0.0-0.5); EOS % 1.1 % (0.0-3.0); HEMATOCRIT 41.4 % (42.0-52.0); HEMOGLOBIN 13.3 g/dl (13.5-17.5); LYMPH # 0.8 10^3/uL (1.5-5.0); LYMPH % 8.4 % (24.0-44.0); MEAN CORPUSCULAR HGB CONC 32.1 g/dl (32.0-36.5); MEAN CORPUSCULAR VOLUME 93.5 fl (80.0-96.0); MONO # 1.3 10^3/uL (0.0-0.8); MONO % 13.9 % (2.0-8.0); NEUTROPHILS % 75.9 % (36.0-66.0); PLATELET COUNT, AUTOMATED 229 10^3/uL (150-450); RED BLOOD COUNT 4.43 10^6/uL (4.30-6.10); WHITE BLOOD COUNT 9.2 10^3/uL (4.0-10.0)
[2024-03-08] MEDS: methylPREDNISolone 125MG 2ML VIAL IV ONE (09:14)
[2024-03-08] MEDS: ACETAMINOPHEN 325 MG TAB PO ONE (09:14)
[2024-03-08] MEDS: NS 500 ML IV ONE (09:14)
[2024-03-08 09:39] LABS: ALKALINE PHOSPHATASE 82 U/L (40-129); ALT/SGPT 19 U/L (7.0-40); AST/SGOT 19 U/L (<34); BILIRUBIN,DIRECT 0.5 MG/DL (<0.4); BILIRUBIN,TOTAL 1.1 MG/DL (0.3-1.2); BLOOD UREA NITROGEN 17 MG/DL (9-23); CALCIUM LEVEL 8.5 MG/DL (8.3-10.6); CARBON DIOXIDE LEVEL 28 MMOL/L (20-31); CHLORIDE LEVEL 105 MMOL/L (98-107); CK-MB VALUE MASS < 1.0 NG/ML (<3.6); CREATININE FOR GFR 1.04 MG/DL (0.70-1.30); GLOMERULAR FILTRATION RATE > 60.0 (>35); GLUCOSE, FASTING 113 MG/DL (74-106); POTASSIUM SERUM 4.5 MMOL/L (3.5-5.1); SODIUM LEVEL 143 MMOL/L (136-145); TOTAL PROTEIN 6.1 G/DL (5.7-8.2)
[2024-03-08 09:41] LABS: THYROID STIMULATING HORMONE 0.986 uIU/ML (0.55-4.78); THYROXINE (T4) 5.1 UG/DL (4.5-10.9)
[2024-03-08 09:55] LABS: CPK CREATINE PHOSPHOKINASE 53 U/L (46-171); MB/CK RELATIVE INDEX 1.88 (< OR =4)
[2024-03-08] MEDS: COMBIVENT RESPIMAT 100-20MCG INHALER 4GM INH SCH (10:19)
[2024-03-08 10:40] LABS: CK-MB VALUE MASS < 1.0 NG/ML (<3.6)
[2024-03-08 10:41] LABS: CPK CREATINE PHOSPHOKINASE 45 U/L (46-171); MB/CK RELATIVE INDEX 2.22 (< OR =4)
[2024-03-08] MEDS: NS (Normal Saline) 0.9% 1,000 ML IV ONE (11:10)
[2024-03-08] MEDS ORDERED: ACETAMINOPHEN 325 MG TAB PO PRN (11:55)
[2024-03-08] MEDS ORDERED: ALBU2.5V10 INH (12:30)
[2024-03-08] MEDS ORDERED: ACET-907 PO (12:30)
[2024-03-08] MEDS ORDERED: DORZ2SOL5 OU (12:30)
[2024-03-08] MEDS ORDERED: HOME MED LIST COMPLETE! XX SCH (12:35)
[2024-03-08] MEDS: TIOTROPIUM INHALER/CAPSULE (SPIRIVA) INH SCH (15:31)
[2024-03-08] MEDS: IPRATROPIUM 0.5MG/ALBUTEROL 2.5MG INH SOL UD 3ML (DUONEB) NEB SCH (15:31)
[2024-03-08] MEDS: REMDESIVIR 200 MG in NS 250 ML IV ONE (17:13)
[2024-03-08 18:00] VITALS: BP 146/91; TEMP 97.7; O2SAT 98
[2024-03-08] MEDS: SYMBICORT 80/4.5MCG INHALER 6GM INH SCH (19:27)
[2024-03-08 19:43] VITALS: BP 94/62; TEMP 97.5; O2SAT 98
[2024-03-08] MEDS: COSOPT OCUMETER PLUS 10ML (DORZOLAMIDE/TIMOLOL) OU SCH (20:45)
[2024-03-08] MEDS: ENOXAPARIN 40MG/0.4ML SYRINGE (J1650 PER 10MG) SC SCH (20:46)
[2024-03-08] MEDS: LATANOPROST 0.005% OPHTH SOLN 2.5 ML OU SCH (20:46)
[2024-03-08 22:31] VITALS: BP 109/71
[2024-03-09 04:00] VITALS: BP 110/74; TEMP 97.7; O2SAT 99
[2024-03-09 07:20] LABS: HEMATOCRIT 38.7 % (42.0-52.0); HEMOGLOBIN 12.9 g/dl (13.5-17.5); MEAN CORPUSCULAR HEMOGLOBIN 30.5 pg (27.0-33.0); MEAN CORPUSCULAR HGB CONC 33.3 g/dl (32.0-36.5); MEAN CORPUSCULAR VOLUME 91.5 fl (80.0-96.0); PLATELET COUNT, AUTOMATED 224 10^3/uL (150-450); RED BLOOD COUNT 4.23 10^6/uL (4.30-6.10); WHITE BLOOD COUNT 9.6 10^3/uL (4.0-10.0)
[2024-03-09 07:52] LABS: BLOOD UREA NITROGEN 18 MG/DL (9-23); CALCIUM LEVEL 9.1 MG/DL (8.3-10.6); CARBON DIOXIDE LEVEL 27 MMOL/L (20-31); CHLORIDE LEVEL 104 MMOL/L (98-107); CREATININE FOR GFR 0.87 MG/DL (0.70-1.30); GLOMERULAR FILTRATION RATE > 60.0 (>35); GLUCOSE, FASTING 91 MG/DL (74-106); POTASSIUM SERUM 4.7 MMOL/L (3.5-5.1); SODIUM LEVEL 142 MMOL/L (136-145)
[2024-03-09] MEDS: amLODIPine 5 MG TAB PO SCH (09:19)
[2024-03-09 12:00] VITALS: BP 117/76; TEMP 97; O2SAT 95
[2024-03-09] MEDS: REMDESIVIR 100 MG in NS 100 ML IV SCH (15:30)
[2024-03-09 20:06] VITALS: BP 109/67; TEMP 97.5; O2SAT 98
[2024-03-10 04:00] VITALS: BP 130/92; TEMP 97.7; O2SAT 98
[2024-03-10 09:05] VITALS: BP 132/85
== END 2024-03-10 11:55 | disposition home or self-care (01) ==
LOC: M ED 07:56 → M ED INP 07:57 → M MS5PR 17:30
PROVIDERS: ADMIT Internal Medicine; ATTEND Internal Medicine
DX: U07.1 COVID-19 (principal); R53.1 Weakness; R26.81 Unsteadiness on feet; R25.1 Tremor, unspecified; R60.9 Edema, unspecified; Z85.118 Personal history of other malignant neoplasm of bronchus and lung; Z92.3 Personal history of irradiation; J44.9 Chronic obstructive pulmonary disease, unspecified; I10 Essential (primary) hypertension; H40.9 Unspecified glaucoma; Z79.899 Other long term (current) drug therapy
CPT/HCPCS: 36415; 71045; 71275; 80047; 80048; 80076; 82550; 82553; 82803; 83605; 83880; 84436; 84443; 84484; 85025; 85027; 87040; 87486; 87581; 87633; 87798; 93005; 93041; 93970; 94640; 94664; 94760; 96365; 96366; 96372; 96375; 96376; 97161; 99285; G0378; J0248; J1650; J2919; Q9967

== ENCOUNTER 2024-03-25 08:38 | Emergency (ER) | payer MEDICARE ==
[~2024-03-25] VITALS: Ht 177.8 cm; Wt 99.7 kg
[~2024-03-25 08:38] MED LIST changes: +ACET-907 PO; +ALBU2.5V10 INH; +DORZ2SOL5 OU
[2024-03-25] MEDS ORDERED: PANT40TA29 (08:53)
[2024-03-25] MEDS: ALBUTEROL SULFATE 2.5MG/0.5ML INH NEB SOLN INH ONE (09:29)
[2024-03-25] MEDS: IPRATROPIUM 0.5MG/ALBUTEROL 2.5MG INH SOL UD 3ML (DUONEB) NEB ONE (09:29)
[2024-03-25 10:27] LABS: BASO # 0.1 10^3/uL (0.0-0.2); BASO % 0.6 % (0.0-1.0); EOS # 0.3 10^3/uL (0.0-0.5); EOS % 2.6 % (0.0-3.0); HEMATOCRIT 42.2 % (42.0-52.0); HEMOGLOBIN 13.4 g/dl (13.5-17.5); LYMPH # 1.1 10^3/uL (1.5-5.0); LYMPH % 8.7 % (24.0-44.0); MEAN CORPUSCULAR HGB CONC 31.8 g/dl (32.0-36.5); MEAN CORPUSCULAR VOLUME 91.3 fl (80.0-96.0); MONO # 1.5 10^3/uL (0.0-0.8); MONO % 12.3 % (2.0-8.0); NEUTROPHILS # 9.5 10^3/uL (1.5-8.5); NEUTROPHILS % 75.4 % (36.0-66.0); PLATELET COUNT, AUTOMATED 313 10^3/uL (150-450); RED BLOOD COUNT 4.62 10^6/uL (4.30-6.10); WHITE BLOOD COUNT 12.5 10^3/uL (4.0-10.0)
[2024-03-25] MEDS ORDERED: ISOVUE-370 76% 100ML VIAL As Ordered ONE (10:46)
[2024-03-25 11:15] LABS: VENOUS BASE EXCESS -1.9 (-2.0-2.0); VENOUS HCO3 24.6 MMOL/L (23.0-27.0); VENOUS O2 SATURATION 78.6 % (60.0-80.0); VENOUS PARTIAL PRESSURE CO2 48.3 mmHg (38.0-50.0); VENOUS PARTIAL PRESSURE O2 43.1 mmHg (30.0-50.0); VENOUS PH 7.324 UNITS (7.330-7.430); VENOUS STANDARD HCO3 22.5 MMOL/L
[2024-03-25] MEDS ORDERED: PROHANCE 279.3MG/ML 5ML VIAL As Ordered ONE (11:15)
[2024-03-25] MEDS ORDERED: PROHANCE 279.3MG/ML 15ML VIAL As Ordered ONE (11:16)
[2024-03-25 11:51] LABS: CK-MB VALUE MASS < 1.0 NG/ML (<3.6)
[2024-03-25 11:53] LABS: ALBUMIN 2.9 G/DL (3.2-5.2); ALKALINE PHOSPHATASE 71 U/L (40-129); ALT/SGPT 11 U/L (7.0-40); AST/SGOT 13 U/L (<34); BILIRUBIN,DIRECT 0.4 MG/DL (<0.4); BILIRUBIN,TOTAL 0.8 MG/DL (0.3-1.2); BLOOD UREA NITROGEN 19 MG/DL (9-23); CALCIUM LEVEL 9.1 MG/DL (8.3-10.6); CARBON DIOXIDE LEVEL 26 MMOL/L (20-31); CHLORIDE LEVEL 107 MMOL/L (98-107); CREATININE FOR GFR 0.99 MG/DL (0.70-1.30); GLOMERULAR FILTRATION RATE > 60.0 (>35); GLUCOSE, FASTING 108 MG/DL (74-106); POTASSIUM SERUM 4.4 MMOL/L (3.5-5.1); SODIUM LEVEL 142 MMOL/L (136-145); TOTAL PROTEIN 6.5 G/DL (5.7-8.2)
[2024-03-25 11:54] LABS: THYROID STIMULATING HORMONE 0.372 uIU/ML (0.55-4.78); THYROXINE (T4) 5.6 UG/DL (4.5-10.9)
[2024-03-25 12:00] LABS: PROCALCITONIN 0.21 ng/ml
[2024-03-25 12:01] LABS: CPK CREATINE PHOSPHOKINASE 35 U/L (46-171); MB/CK RELATIVE INDEX 2.85 (< OR =4)
[2024-03-25] MEDS: dexAMETHasone 20MG/5ML VIAL IV ONE (12:46)
[2024-03-25 13:31] LABS: CK-MB VALUE MASS < 1.0 NG/ML (<3.6)
[2024-03-25 13:39] LABS: CPK CREATINE PHOSPHOKINASE 42 U/L (46-171); MB/CK RELATIVE INDEX 2.38 (< OR =4)
[2024-03-25 14:20] VITALS: BP 122/66; TEMP 98.2
[2024-03-25 14:41] VITALS: O2SAT 93
[2024-03-25] MEDS ORDERED: LEVO75TAB PO (14:45)
[2024-03-25] MEDS ORDERED: VENTAER INH (14:45)
[2024-03-25] MEDS ORDERED: LevoFLOXacin 750 MG TABLET PO ONE (14:50)
== END 2024-03-25 15:10 | disposition home or self-care (01) ==
LOC: M ED 08:38
DX: R93.0 Abnormal findings on diagnostic imaging of skull and head, not elsewhere classified (principal); R91.8 Other nonspecific abnormal finding of lung field; I10 Essential (primary) hypertension; J44.9 Chronic obstructive pulmonary disease, unspecified; F17.200 Nicotine dependence, unspecified, uncomplicated; Z86.16 Personal history of COVID-19; Z79.899 Other long term (current) drug therapy
CPT/HCPCS: 70553; 71045; 71275; 80047; 80048; 80076; 82550; 82553; 82803; 83605; 83880; 84145; 84436; 84443; 84484; 85025; 87040; 87486; 87581; 87633; 87798; 93005; 93041; 93970; 94640; 94760; 96374; 99285; A9576; J1100; Q9967

== ENCOUNTER → 2024-03-27 | Outpatient (CLI) | payer MEDICARE ==
[~2024-03-27] MED LIST changes: +BARIUM SULFATE 700 MG TABLET (E-Z-DISK) As Ordered ONE; +E-Z-PAQUE 96% w/w SUSP 176GM BTL As Ordered ONE; +LEVO75TAB PO; +PANT40TA29; +VARIBAR NECTAR 40% w/v 240ML SUSP BTL As Ordered ONE; +VARIBAR PUDDING 40% w/v 230ML TUBE As Ordered ONE
== END ==
LOC: M RAD 11:09
PROVIDERS: ATTEND Internal Medicine Hematology & Oncology
DX: C34.81 Malignant neoplasm of overlapping sites of right bronchus and lung (principal); R07.9 Chest pain, unspecified; R68.83 Chills (without fever); R11.0 Nausea; R13.10 Dysphagia, unspecified; R10.32 Left lower quadrant pain; R19.5 Other fecal abnormalities; R91.1 Solitary pulmonary nodule

== ENCOUNTER → 2024-04-02 | Outpatient (CLI) | payer MEDICARE ==
[~2024-04-02] MED LIST changes: -BARIUM SULFATE 700 MG TABLET (E-Z-DISK) As Ordered ONE; -E-Z-PAQUE 96% w/w SUSP 176GM BTL As Ordered ONE; -VARIBAR NECTAR 40% w/v 240ML SUSP BTL As Ordered ONE; -VARIBAR PUDDING 40% w/v 230ML TUBE As Ordered ONE
== END ==
LOC: M PLARAD 13:05
PROVIDERS: ATTEND Student in an Organized Health Care Education/Training Program
DX: C34.81 Malignant neoplasm of overlapping sites of right bronchus and lung (principal); R07.9 Chest pain, unspecified; R68.83 Chills (without fever); R11.0 Nausea; R13.10 Dysphagia, unspecified; R10.32 Left lower quadrant pain; R19.5 Other fecal abnormalities; R91.1 Solitary pulmonary nodule
CPT/HCPCS: 78815; A9552

== ENCOUNTER → 2024-04-18 | Outpatient (CLI) | payer MEDICARE ==
[2024-04-18 08:20] LABS: BASO # 0.1 10^3/uL (0.0-0.2); BASO % 0.6 % (0.0-1.0); EOS # 0.2 10^3/uL (0.0-0.5); EOS % 1.7 % (0.0-3.0); HEMATOCRIT 40.6 % (42.0-52.0); HEMOGLOBIN 12.9 g/dl (13.5-17.5); LYMPH % 10.9 % (24.0-44.0); MEAN CORPUSCULAR HEMOGLOBIN 29.5 pg (27.0-33.0); MEAN CORPUSCULAR HGB CONC 31.8 g/dl (32.0-36.5); MEAN CORPUSCULAR VOLUME 92.7 fl (80.0-96.0); MONO # 1.3 10^3/uL (0.0-0.8); MONO % 14.1 % (2.0-8.0); NEUTROPHILS # 6.8 10^3/uL (1.5-8.5); NEUTROPHILS % 72.5 % (36.0-66.0); PLATELET COUNT, AUTOMATED 279 10^3/uL (150-450); RED BLOOD COUNT 4.38 10^6/uL (4.30-6.10); WHITE BLOOD COUNT 9.4 10^3/uL (4.0-10.0)
[2024-04-18 08:48] LABS: ALKALINE PHOSPHATASE 75 U/L (40-129); ALT/SGPT 12 U/L (7.0-40); AST/SGOT 13 U/L (<34); BILIRUBIN,TOTAL 0.8 MG/DL (0.3-1.2); BLOOD UREA NITROGEN 20 MG/DL (9-23); CALCIUM LEVEL 9.2 MG/DL (8.3-10.6); CARBON DIOXIDE LEVEL 29 MMOL/L (20-31); CHLORIDE LEVEL 107 MMOL/L (98-107); CHOLESTEROL LEVEL 83 MG/DL (<200); CHOLESTEROL RISK RATIO 1.78 (<5); CREATININE FOR GFR 1.05 MG/DL (0.70-1.30); GLOMERULAR FILTRATION RATE > 60.0 (>35); GLUCOSE, FASTING 105 MG/DL (74-106); HDL CHOLESTEROL 46.5 MG/DL (>40); LDL CHOLESTEROL 25.3 MG/DL (<100); NON-HDL-C 36.5 MG/DL; POTASSIUM SERUM 4.9 MMOL/L (3.5-5.1); SODIUM LEVEL 142 MMOL/L (136-145); TOTAL PROTEIN 6.3 G/DL (5.7-8.2); TRIGLYCERIDES LEVEL 56 MG/DL (<150)
[2024-04-21 06:22] LABS: NT PRO BNP SO 552 pg/mL (<450)
[2024-04-22 21:57] LABS: LYME TOTAL ANTIBODY CIA <= 0.90 Index (<=0.90)
== END ==
LOC: M LAB 07:38
PROVIDERS: ATTEND Internal Medicine Cardiovascular Disease
DX: E78.2 Mixed hyperlipidemia (principal); I10 Essential (primary) hypertension; I50.9 Heart failure, unspecified; I48.0 Paroxysmal atrial fibrillation; A69.20 Lyme disease, unspecified; R00.0 Tachycardia, unspecified; R06.02 Shortness of breath; R60.0 Localized edema

== ENCOUNTER 2024-05-28 13:18 | Observation (INO) | payer MEDICARE ==
[~2024-05-28] VITALS: Ht 177.8 cm; Wt 101.8 kg
[2024-05-28] MEDS: ACETAMINOPHEN 325 MG TAB PO ONE (13:40)
[2024-05-28] MEDS: IPRATROPIUM 0.5MG/ALBUTEROL 2.5MG INH SOL UD 3ML NEB PRN (13:47)
[2024-05-28 14:03] LABS: VENOUS BASE EXCESS -2.5 (-2.0-2.0); VENOUS HCO3 22.9 MMOL/L (23.0-27.0); VENOUS O2 SATURATION 63.6 % (60.0-80.0); VENOUS PARTIAL PRESSURE CO2 41.8 mmHg (38.0-50.0); VENOUS PARTIAL PRESSURE O2 32.2 mmHg (30.0-50.0); VENOUS PH 7.357 UNITS (7.330-7.430); VENOUS STANDARD HCO3 21.6 MMOL/L; VENOUS TOTAL CO2 24.2 MMOL/L (24.0-28.0)
[2024-05-28 14:08] LABS: BASO # 0.1 10^3/uL (0.0-0.2); BASO % 0.3 % (0.0-1.0); HEMATOCRIT 42.1 % (42.0-52.0); HEMOGLOBIN 13.5 g/dl (13.5-17.5); LYMPH # 0.8 10^3/uL (1.5-5.0); LYMPH % 3.7 % (24.0-44.0); MEAN CORPUSCULAR HEMOGLOBIN 29.3 pg (27.0-33.0); MEAN CORPUSCULAR HGB CONC 32.1 g/dl (32.0-36.5); MEAN CORPUSCULAR VOLUME 91.3 fl (80.0-96.0); MONO # 2.4 10^3/uL (0.0-0.8); MONO % 10.5 % (2.0-8.0); NEUTROPHILS # 19.1 10^3/uL (1.5-8.5); NEUTROPHILS % 84.9 % (36.0-66.0); PLATELET COUNT, AUTOMATED 272 10^3/uL (150-450); RED BLOOD COUNT 4.61 10^6/uL (4.30-6.10); WHITE BLOOD COUNT 22.5 10^3/uL (4.0-10.0)
[2024-05-28 14:26] LABS: KETONE, URINE AUTO RFX NEGATIVE (NEGATIVE); LEUKOCYTE ESTERASE UR AUTO RFX NEGATIVE (NEGATIVE); MUCUS, URINE RFX SMALL (NEGATIVE); NITRITE, URINE AUTO RFX NEGATIVE (NEGATIVE); RBC, URINE AUTO RFX 1 /HPF (0-3); SQUAM EPITHELIAL CELL UR AURFX 0 /HPF (0-6); WBC, URINE AUTO RFX 2 /HPF (0-3)
[2024-05-28 14:33] LABS: ALBUMIN 3.5 G/DL (3.2-5.2); ALKALINE PHOSPHATASE 81 U/L (40-129); ALT/SGPT 17 U/L (7.0-40); AST/SGOT 14 U/L (<34); BILIRUBIN,DIRECT 0.5 MG/DL (<0.4); BILIRUBIN,TOTAL 1.1 MG/DL (0.3-1.2); BLOOD UREA NITROGEN 22 MG/DL (9-23); CALCIUM LEVEL 9.1 MG/DL (8.3-10.6); CARBON DIOXIDE LEVEL 29 MMOL/L (20-31); CHLORIDE LEVEL 102 MMOL/L (98-107); CK-MB VALUE MASS < 1.0 NG/ML (<3.6); CREATININE FOR GFR 0.98 MG/DL (0.70-1.30); GLUCOSE, FASTING 103 MG/DL (74-106); POTASSIUM SERUM 3.9 MMOL/L (3.5-5.1); SODIUM LEVEL 139 MMOL/L (136-145); TOTAL PROTEIN 6.4 G/DL (5.7-8.2)
[2024-05-28 14:37] LABS: THYROID STIMULATING HORMONE 0.263 uIU/ML (0.55-4.78)
[2024-05-28 14:42] LABS: CPK CREATINE PHOSPHOKINASE 38 U/L (46-171); MB/CK RELATIVE INDEX 2.63 (< OR =4)
[2024-05-28] MEDS: CEFEPIME HCL 2 GM in DEXTROSE 5% (D5W) ADV/MINI-BAG 50 ML IV ONE (14:56)
[2024-05-28 15:35] LABS: CK-MB VALUE MASS < 1.0 NG/ML (<3.6)
[2024-05-28 15:40] LABS: CPK CREATINE PHOSPHOKINASE 42 U/L (46-171); MB/CK RELATIVE INDEX 2.38 (< OR =4)
[2024-05-28] MEDS ORDERED: IBUP-1730 PO (16:15)
[2024-05-28] MEDS ORDERED: BISO1TAB18 PO (16:15)
[2024-05-28] MEDS ORDERED: HOME MED LIST COMPLETE! XX SCH (16:15)
[2024-05-28] MEDS ORDERED: ISOVUE-370 76% 100ML VIAL As Ordered ONE (16:18)
[2024-05-28] MEDS ORDERED: IPRATROPIUM 0.5MG/ALBUTEROL 2.5MG INH SOL UD 3ML NEB PRN (16:55)
[2024-05-28] MEDS ORDERED: MOM 30ML SUSPENSION UDC PO PRN (16:55)
[2024-05-28] MEDS ORDERED: ACETAMINOPHEN 325 MG TAB PO PRN (16:55)
[2024-05-28 17:38] LABS: C REACTIVE PROTEIN QUANTITATIV 2.14 MG/DL (<1.0)
[2024-05-28 17:46] LABS: PROCALCITONIN 0.25 ng/ml
[2024-05-28] MEDS: AZITHROMYCIN 250MG TABLET PO SCH (18:47)
[2024-05-28] MEDS: NS (Normal Saline) 0.9% 1,000 ML IV SCH (18:47)
[2024-05-28] MEDS: SYMBICORT 160/4.5MCG INHALER 6GM INH SCH (19:35)
[2024-05-28] MEDS: cefTRIAXone SOD 2 GM in DEXTROSE 5% (D5W) ADV/MINI-BAG 50 ML IV SCH (22:00)
[2024-05-28] MEDS: DOCUSATE SODIUM 100MG CAPSULE PO SCH (22:00)
[2024-05-28] MEDS: LATANOPROST 0.005% OPHTH SOLN 2.5 ML OU SCH (22:08)
[2024-05-28] MEDS: COSOPT OCUMETER PLUS 10ML (DORZOLAMIDE/TIMOLOL) OU SCH (22:08)
[2024-05-29 06:12] LABS: BASO % 0.1 % (0.0-1.0); HEMATOCRIT 37.6 % (42.0-52.0); HEMOGLOBIN 12.2 g/dl (13.5-17.5); LYMPH # 0.7 10^3/uL (1.5-5.0); LYMPH % 5.1 % (24.0-44.0); MEAN CORPUSCULAR HEMOGLOBIN 29.4 pg (27.0-33.0); MEAN CORPUSCULAR HGB CONC 32.4 g/dl (32.0-36.5); MEAN CORPUSCULAR VOLUME 90.6 fl (80.0-96.0); MONO # 1.3 10^3/uL (0.0-0.8); MONO % 8.7 % (2.0-8.0); NEUTROPHILS # 12.5 10^3/uL (1.5-8.5); NEUTROPHILS % 85.6 % (36.0-66.0); PLATELET COUNT, AUTOMATED 228 10^3/uL (150-450); RED BLOOD COUNT 4.15 10^6/uL (4.30-6.10); WHITE BLOOD COUNT 14.6 10^3/uL (4.0-10.0)
[2024-05-29 06:35] LABS: CREATININE FOR GFR 0.85 MG/DL (0.70-1.30); GLOMERULAR FILTRATION RATE 86.8 (>35); POTASSIUM SERUM 4.5 MMOL/L (3.5-5.1)
[2024-05-29] MEDS: TIOTROPIUM BROM 2.5MCG/ACTUATION 4GM INH IH SCH (08:28)
[2024-05-29] MEDS: bisoproloL fumarate 5 MG TAB PO SCH (08:47)
[2024-05-29] MEDS: ENOXAPARIN 40MG/0.4ML SYRINGE (J1650 PER 10MG) SC SCH (08:48)
[2024-05-29] MEDS: HYDROCHLOROthiazide 6.25MG PER 1/4TAB PO SCH (08:57)
[2024-05-29] MEDS ORDERED: CEFD300CAP PO (11:05)
[2024-05-29] MEDS ORDERED: AZIT500T5 PO (11:05)
[2024-05-29 11:30] VITALS: BP 144/78; TEMP 96.2; O2SAT 96
== END 2024-05-29 13:00 | disposition home or self-care (01) ==
LOC: EDBD 13:18 → M ED 13:18 → M ED INP 13:19
PROVIDERS: ADMIT Internal Medicine; ATTEND Internal Medicine
DX: J18.9 Pneumonia, unspecified organism (principal); J44.9 Chronic obstructive pulmonary disease, unspecified; R07.9 Chest pain, unspecified; R94.6 Abnormal results of thyroid function studies; I10 Essential (primary) hypertension; H40.9 Unspecified glaucoma; C34.31 Malignant neoplasm of lower lobe, right bronchus or lung; Z92.3 Personal history of irradiation; Z79.620 Long term (current) use of immunosuppressive biologic
CPT/HCPCS: 36415; 51701; 71045; 71275; 80048; 80076; 81001; 82550; 82553; 82803; 83605; 83735; 83880; 84145; 84439; 84443; 84484; 85025; 86140; 87040; 87486; 87581; 87633; 87798; 93005; 93041; 94640; 94760; 96361; 96365; 96366; 96372; 97161; 97165; 97535; 99285; G0378; J0692; J0696; J1650; Q9967

== ENCOUNTER → 2024-10-29 | Outpatient (CLI) | payer MEDICARE ==
[~2024-10-29] MED LIST changes: +AZIT500T5 PO; +BISO1TAB18 PO; +CEFD300CAP PO; +IBUP-1730 PO
== END ==
LOC: M RAD 08:56
PROVIDERS: ATTEND Student in an Organized Health Care Education/Training Program
DX: C34.81 Malignant neoplasm of overlapping sites of right bronchus and lung (principal); R07.9 Chest pain, unspecified; J43.2 Centrilobular emphysema